=== PATIENT | male | born 1990 | race Caucasian/White ===

== ENCOUNTER 2021-09-03 21:56 | Emergency (ER) | payer OTHER, SELFPAY ==
--- NOTE | ~2021-09-03 | XR_ITS ---
EXAMINATION: XR ankle RT min 3V INDICATION: Right ankle pain, initial encounter TECHNIQUE: Four views of the right ankle are obtained. COMPARISON: None available FINDINGS: There is an acute, traumatic, closed, oblique fracture of the distal fibula which extends t o the level of the tibial plafond. The distal fibular fracture fragment is posteriorly displaced by a pproximately one shaft width. There is an oblique linear component of the fracture extending proximal ly in the distal shaft of the fibula. The distal talofibular articulation appears to be normal. There is widening of the medial tibiotalar joint. There is soft tissue swelling of ankle. IMPRESSION: 1. Oblique fracture of the distal fibula extending to the level of the tibial plafond with posterior displacement. 2. Widening of the tibiotalar joint. Reviewed, dictated and finalized at location F. IMPRESSION: 1. Oblique fracture of the distal fibula extending to the level of the tibial p maxx with posterior displacement. 2. Widening of the tibiotalar joint.
--- NOTE | ~2021-09-03 | CT_ITS ---
EXAMINATION: CT brain wo con INDICATION: Head injury COMPARISON: None TECHNIQUE: Standard unenhanced head CT. The dose-length product (DLP) was 605.33 mGy-cm. The mA was a djusted according to patient size. Iterative reconstruction technique was employed. FINDINGS: There is no intracranial hemorrhage, acute infarction, or abnormal mass lesion. The ventric les are normal. There is no abnormal mass effect or midline shift. The caldwell-white matter differentiat ion is normal. The basal cisterns are patent. The orbits are normal. The paranasal sinuses, mastoids and calvarium are normal. IMPRESSION: 1. No acute intracranial abnormality. Reviewed, dictated and finalized at location F.
[2021-09-03 22:03] VITALS: BP 91/51; PULSE 85; RESP 18; TEMP 36.1; O2SAT 99
--- NOTE | 2021-09-03 22:46 | ED.LOWEXIN ---
HPI - Extremity Injury (Lower) General Chief Complaint: Extremity Injury, Lower Stated Complaint: ankle injury Time Seen by Provider: 09/03/21 22:18 Source: patient Mode of arrival: wheelchair Limitations: no limitations History of Present Illness HPI Narrative: This is a 31 year old male that presents to the ER for right ankle injury sustained just prior to arrival. Reports he was sliding into third base and felt immediate pain in the right ankle. He is unsure if he hit his head, but he did pass out. Reports he was carried off the field and EMS was called. He was evaluated and refused transport via EMS. Presented via private vehicle. Reports decreased ROM in the right ankle due to pain. Denies vision changes, vomiting, or numbness. Related Data Allergies Allergy/AdvReac Type Severity Reaction Status Date / Time No Known Allergies Allergy Verified 09/03/21 23:16 Review of Systems Review of Systems: CONSTITUTIONAL: Denies fever EYES: Denies visual changes GASTROINTESTINAL: Denies vomiting MUSCULOSKELETAL: Reports joint pain, and myalgia. NEUROLOGIC: Denies numbness, or weakness. All systems reviewed & are unremarkable except as noted in HPI and below PMFSH Past Medical History Medical History (Updated 09/04/21 @ 00:48 by Renita Juarez PA-C) No active medical problems Social History Social History (Updated 09/03/21 @ 22:53 by Renita Juarez PA-C) Substance use: never Exam Narrative: GENERAL: Well-appearing, well-nourished, and in no acute distress. HEAD: Normocephalic, atraumatic. EYES: PERRLA and EOMI. ENT: Nares clear, no rhinorrhea or epistaxis. Mucous membranes moist. Oropharynx without tonsillar hypertrophy exudate or other lesions. Bilateral TMs pearly caldwell non-bulging NECK: Supple. No adenopathy or masses. CHEST: Clear to auscultation. No respiratory distress. No wheezes rales or rhonchi HEART: Regular rate and rhythm. No murmur heard. Normal peripheral pulses. EXTREMITIES: Decreased active ROM in the right ankle due to pain. Mild edema about bilateral right medial malleoli. Normal DP pulses. Normal sensation SKIN: Warm, dry, no rash. NEURO: No focal deficits. Alert and oriented x3. Cranial nerves II through XII grossly intact PSYCH: Normal mood and affect Course Vital Signs Vital signs: Vital Signs Temperature 97 F L 09/03/21 22:03 Pulse Rate 85 09/03/21 22:03 Respiratory Rate 18 09/03/21 22:03 Blood Pressure 91/51 L 09/03/21 22:03 Pulse Oximetry 99 09/03/21 22:03 Oxygen Delivery Room Air 09/03/21 22:03 Temperature 97 F L 09/03/21 22:03 Pulse Rate 85 09/04/21 00:15 Respiratory Rate 18 09/04/21 00:15 Blood Pressure 109/77 09/04/21 00:15 Pulse Oximetry 100 09/04/21 00:15 Oxygen Delivery Room Air 09/03/21 22:03 Procedures Orthopedic Splinting/Casting Injury #1: Splinting/Casting Date: 09/04/21 Splinting/Casting Time: 00:46 Side: right Lower Extremity Injury Location: ankle Lower Extremity Immobilizer: posterior splint Splint: customized in ED OCL: posterior Pre-Procedure Neuro Vascular Exam: normal Post-Procedure Neuro Vascular Exam: normal MDM - Extremity Injury (Lower) MDM Narrative Medical decision making narrative: Patient presents to the emergency department with a right ankle injury sustained just prior to arrival. Reportedly also possible head injury with loss of consciousness. Patient's vitals are stable. He is neurologically intact. CT scan of the brain is without acute findings. Right ankle x-ray shows an oblique fracture of the distal fibula extending to the level of the tibial plafond with posterior displacement. Shows widening of the tibiotalar joint. Spoke with Dr. Golden about patient and work-up. Patient placed in a posterior splint and is to follow-up in clinic. Patient is stable and felt appropriate for further outpatient evaluation. He was given warnings to return
[2021-09-03 23:01] VITALS: BP 116/82
[2021-09-03] MEDS: ONDANSETRON INJ 4 MG/2 ML VIAL IV PUSH (23:16)
[2021-09-03] MEDS: MORPHINE SULFATE (*CRX) 4 MG/ML INJ IV PUSH (23:17)
[2021-09-03 23:19] VITALS: BP 127/86; PULSE 95; RESP 18; O2SAT 99
[2021-09-04] MEDS: fentaNYL CITRATE INJ (*CRX) 100 MCG/2 ML VIAL 50 MCG IV PUSH (00:14)
[2021-09-04 00:15] VITALS: BP 109/77; PULSE 85; RESP 18; O2SAT 100
[2021-09-04] MEDS: LORazepam INJ (*CRX) 2 MG/ML VIAL 1 MG IV PUSH (00:31)
== END 2021-09-04 01:00 | disposition home or self-care (01) ==
PROVIDERS: Emergency Provider Emergency Medicine
DX: S82.831A Other fracture of upper and lower end of right fibula, initial encounter for closed fracture (principal); W21.89XA Striking against or struck by other sports equipment, initial encounter; Y93.64 Activity, baseball
CPT/HCPCS: 29515; 70450; 73610; 96374; 96375; 99284; J2060; J2270; J2405; J3010